=== PATIENT | female | born 1995 | race Caucasian/White ===

== ENCOUNTER 2017-06-10 14:36 | Emergency (ER) | payer OTHER ==
[2017-06-10 15:10] VITALS: BP 131/73; PULSE 73; TEMP 98.4; BMI 22.4
[2017-06-10] MEDS ORDERED: ACETAMINOPHEN 325 MG TABLET (FP) PO ONE (16:29)
--- NOTE | 2017-06-10 16:44 | PDOC ---
History of Present Illness - General Chief Complaint: Headache Stated Complaint: HEADACHE Time Seen by Provider: 06/10/17 16:13 Past History - Past Medical History Home Medications: Ambulatory Orders NK [No Known Home Medication] 06/10/17 COPD: No - Suicide/Smoking/Psychosocial Hx Smoking History: Current every day smoker Number of Cigarettes Smoked Daily: 1 Information on smoking cessation initiated: No Hx Alcohol Use: No Drug/Substance Use Hx: No Substance Use Type: None *Physical Exam - Vital Signs Last Vital Signs Temp Pulse Resp BP Pulse Ox 98.4 F 73 18 131/73 98 06/10/17 15:02 06/10/17 15:02 06/10/17 15:02 06/10/17 15:02 06/10/17 15:02 ED Treatment Course - ADDITIONAL ORDERS Additional order review: Laboratory Results 06/10/17 16:28 Urine HCG, Qual Negative - RADIOLOGY Radiology Studies Ordered: Category Date Time Status HEAD CT WITHOUT CONTRAST [CT] Stat CT Scan 06/10/17 16:29 Ordered *DC/Admit/Observation/Transfer Diagnosis at time of Disposition: Migraine Qualifiers: Migraine type: unspecified Status migrainosus presence: without status migrainosus Intractability: not intractable Qualified Code(s): G43.909 - Migraine, unspecified, not intractable, without status migrainosus - Referrals Referrals: Krystin Deras MD [Primary Care Provider] - - Patient Instructions Printed Discharge Instructions: Migraine -- Adult Additional Instructions: You have a migraine. Your head CT was negative today. Please take ibuprofen 800 mg 3 times a day for the next 2-3 days to help with her pain. A prescription was sent to your pharmacy. Please drink plenty of fluids. Get plenty of rest. Follow-up with her primary care doctor in 2-3 days. Return to the emergency department if her pain gets worse, if you have changes in your vision, changes in the way you walk, or have any changes in her symptoms. - Post Discharge Activity Forms/Work/School Notes: Back to Work
[2017-06-10] MEDS ORDERED: ACETAMINOPHEN 325 MG TABLET (FP) ONE (18:39)
[2017-06-10] MEDS ORDERED: KETOROLAC TROMETHAMINE 60 MG/2 ML VIAL ONE (18:40)
[2017-06-10] MEDS ORDERED: KETOROLAC TROMETHAMINE 60 MG/2 ML VIAL IM ONE (18:45)
== END 2017-06-10 18:48 | disposition home or self-care (01) ==
LOC: JERFT 14:36
PROC: 3E0233Z Introduction of Anti-inflammatory into Muscle, Percutaneous Approach (ICD-10-PCS; principal; 2017-06-10)
DX: G43.909 Migraine, unspecified, not intractable, without status migrainosus (principal)
CPT/HCPCS: 70450-TC; 84703; 96372; 99281-25

== ENCOUNTER 2018-05-22 16:50 | Emergency (ER) | payer SELFPAY ==
[2018-05-22 17:02] VITALS: BP 104/53; PULSE 70; TEMP 97.8; BMI 21.7
[2018-05-22] MEDS ORDERED: METOCLOPRAMIDE HCL 10 MG TABLET (FP) PO ONE ×2 (17:34→18:36)
--- NOTE | 2018-05-22 17:42 | PDOC ---
History of Present Illness - General Chief Complaint: Migraine Headache Stated Complaint: Migraine Headache Time Seen by Provider: 05/22/18 17:25 History Source: Patient Exam Limitations: Clinical Condition - History of Present Illness Initial Comments: 05/22/18 17:35 Patient with no significant past medical history present with complaint of 2 months history of headache and dizziness which has been intermittent for 2 months and has been worsening in the last week. Patient has not followed up with anybody about headaches. Patient denies trauma or injury to head. Patient denies blurry vision or change in vision. Patient reported taking Excedrin 2 times in the last 2 months for her headache. Patient denies any other symptoms Timing/Duration: other (2 months) Past History - Past Medical History Allergies/Adverse Reactions: Allergies Allergy/AdvReac Type Severity Reaction Status Date / Time No Known Allergies Allergy Verified 05/22/18 17:02 Home Medications: Ambulatory Orders Sumatriptan Succinate [Imitrex] 25 mg PO Q6H PRN #20 tablet 05/22/18 COPD: No - Suicide/Smoking/Psychosocial Hx Smoking History: Current every day smoker Have you smoked in the past 12 months: Yes Number of Cigarettes Smoked Daily: 1 Information on smoking cessation initiated: No Hx Alcohol Use: No Drug/Substance Use Hx: No Substance Use Type: None Review of Systems - Review of Systems Able to Perform ROS?: Yes Is the patient limited Kinyarwanda proficient: No Constitutional: No: Chills, Fever, Weakness HEENTM: Yes: See HPI. No: Eye Pain, Blurred Vision, Recent change in vision, Double Vision Respiratory: No: Symptoms reported Cardiac (ROS): No: Symptoms Reported ABD/GI: No: Nausea, Vomiting Neurological: Yes: See HPI, Headache, Dizziness. No: Numbness, Paresthesia, Seizure, Tingling, Weakness All Other Systems: Reviewed and Negative *Physical Exam - Vital Signs Last Vital Signs Temp Pulse Resp BP Pulse Ox 97.8 F 70 16 104/53 L 100 05/22/18 17:00 05/22/18 17:00 05/22/18 17:00 05/22/18 17:00 05/22/18 17:00 - Physical Exam Comments: 05/22/18 17:37 GENERAL: Well developed, well nourished. Awake and alert. No acute distress. HEENT: Normocephalic, atraumatic. PERRLA, EOMI. No conjunctival pallor. Sclera are non- icteric. Moist mucous membranes. Oropharynx is clear. NECK: Supple. Full ROM. No JVD. Carotid pulses 2+ and symmetric, without bruits. No thyromegaly. No lymphadenopathy. CARDIOVASCULAR: Regular rate and rhythm. No murmurs, rubs, or gallops. Distal pulses are 2+ and symmetric. PULMONARY: No evidence of respiratory distress. Lungs clear to auscultation bilaterally. No wheezing, rales or rhonchi. ABDOMINAL: Soft. Non-tender. Non-distended. No rebound or guarding. No organomegaly. Normoactive bowel sounds. MUSCULOSKELETAL Normal range of motion at all joints. SKIN: Warm and dry. Normal capillary refill. No rashes. No jaundice. NEUROLOGICAL: Alert, awake, appropriate. Cranial nerves 2-12 intact. No deficits to light touch in face, upper extremities and lower extremities. No motor deficits in the in face, upper extremities and lower extremities. Normal speech. Gait is normal without ataxia. negative tilt table test PSYCHIATRIC: Cooperative. Good eye contact. Appropriate mood and affect. 05/22/18 17:42 General Appearance: Yes: Nourished, Appropriately Dressed. No: Apparent Distress Moderate Sedation - Procedure Monitoring Vital Signs: Procedure Monitoring Vital Signs Temperature 97.8 F 05/22/18 17:00 Pulse Rate 70 05/22/18 17:00 Respiratory Rate 16 05/22/18 17:00 Blood Pressure 104/53 L 05/22/18 17:00 O2 Sat by Pulse Oximetry (%) 100 05/22/18 17:00 Medical Decision Making - Medical Decision Making 05/22/18 17:39 Patient with no significant past medication present with complaint of 2 months history of headache and dizziness without trauma or injury to head. Patient reported worsening headache and dizziness when last week. Patient reported going to lot of stress with school and having lot of exams in school the last 2 months. Clinical exam unremarkable with normal neuro exam. Reglan 10 mg by mouth ordered for headache. Head CT without contrast ordered to rule out any intracranial pathology. Symptoms likely migraine with aura. Patient be discharged home on Imitrex every negative head CT. 05/22/18 19:23 Head CAT scan shows no acute intracranial pathology. Patient is stable for discharge with Imitrex as needed for headache and neurology follow-up. *DC/Admit/Observation/Transfer Diagnosis at time of Disposition: Tension headache Migraine Qualifiers: Migraine type: with aura Status migrainosus presence: without status migrainosus Intractability: not intractable Qualified Code(s): G43.109 - Migraine with aura, not intractable, without status migrainosus - Discharge Dispostion Disposition: HOME Condition at time of disposition: Stable Decision to Admit order: No - Prescriptions Prescriptions: Sumatriptan Succinate [Imitrex] 25 mg PO Q6H PRN #20 tablet PRN Reason: headache - Referrals Referrals: Krystin Deras MD [Primary Care Provider] - Dustin Herring MD [Staff Physician] - - Patient Instructions Printed Discharge Instructions: Tension Headache Additional Instructions: Your head CAT scan was normal. Take prescribed medication as needed for headache. Follow-up referred neurology if symptoms persist. - Post Discharge Activity
== END 2018-05-22 19:34 | disposition home or self-care (01) ==
LOC: JER 16:50 → JERFT 16:50
DX: G43.109 Migraine with aura, not intractable, without status migrainosus (principal); G44.209 Tension-type headache, unspecified, not intractable; F17.210 Nicotine dependence, cigarettes, uncomplicated
CPT/HCPCS: 70450-TC; 84703; 99281-25

== ENCOUNTER → 2018-09-06 | Day surgery (SDC) | payer OTHER ==
--- NOTE | 2018-09-09 11:25 | OP ---
DATE OF OPERATION: 09/06/2018 PREOPERATIVE DIAGNOSIS: Right breast mass, 9 o'clock, 2 cm from the nipple. POSTOPERATIVE DIAGNOSIS: Right breast mass, 9 o'clock, 2 cm from the nipple. PROCEDURE: Right breast ultrasound guided-core biopsy. ANESTHESIA: Local. ATTENDING SURGEON: Lucy Vasquez MD ESTIMATED BLOOD LOSS: Minimal. COMPLICATIONS: None. DESCRIPTION OF PROCEDURE: Patient was made aware of the risks and benefits of the procedure and consented. She was placed in the supine position. Under sterile conditions with 1% lidocaine for local anesthesia, a small martha was made in the skin. Using a 13-gauge suction biopsy device biopsy via lateral approach, under ultrasound guidance, multiple cores were obtained and submitted to Pathology. No clip was placed into the palpable lesion. Well tolerated by the patient. Steri-Strips and sterile bandage were applied. We will contact her with results. LUCY VASQUEZ M.D. [id number]
--- NOTE | 2018-09-09 15:59 | PATH ---
Surgical Pathology Report Patient Name: LAMA DREW [facility]. Rec. #: [id number] /Age/Gender: 1995 (Age: 23) / F Account: [id number] Location: Taken: 09/06/2018 Received: 09/06/2018 Reported: 09/09/2018 Physicians: Lucy Vasquez M.D. Specimen(s) Received RIGHT BREAST 9:00 2CM FN CORE BIOPSY Clinical History Palpable mass Ultrasound findings: Probably benign Final Diagnosis BREAST, RIGHT, 9:00, 2 CM FN, CORE BIOPSY: BENIGN BREAST TISSUE SHOWING FIBROADENOMA. Electronically Signed Mony Wang M.D. Gross Description Received in formalin labeled "right breast biopsy 9:00, 2cmfn," is a 1.8 x 1.7 x 0.3 cm aggregate of multiple felton-yellow, irregular to cylindrical portions of fibroadipose tissue. The formalin is filtered and the specimen is entirely submitted in one cassette. Time to formalin fixation: < 1 minute Total formalin fixation time: Approximately 51 hours. /09/07/2018 [facility]09/07/2018
== END | disposition home or self-care (01) ==
LOC: FRADUS-SUR 14:09
PROVIDERS: ATTEND Surgery Surgical Oncology
PROC: 0HBT3ZX Excision of Right Breast, Percutaneous Approach, Diagnostic (ICD-10-PCS; principal; 2018-09-06)
DX: D24.1 Benign neoplasm of right breast (principal); N63.10 Unspecified lump in the right breast, unspecified quadrant
CPT/HCPCS: 19083; 87899; 88305-TC; A4648

== ENCOUNTER 2022-08-14 09:49 | Observation (INO) | payer OTHER ==
[2022-08-14 09:57] VITALS: BMI 23.6
[2022-08-14 10:23] LABS: BASO % 0.6 % (0-2.0); HEMATOCRIT 37.7 % (32.4-45.2); HEMOGLOBIN 12.7 GM/dL (10.7-15.3); LYMPH % 34.2 % (8-40); MCH 29.5 pg (25.7-33.7); MCHC 33.7 g/dl (32.0-36.0); MEAN CELL VOLUME 87.4 fl (80-96); MONO % 8.7 % (3.8-10.2); NEUT % 55.5 % (42.8-82.8); PLATELET COUNT 246 10^3/uL (134-434); RBC 4.31 M/mm3 (3.60-5.2); RDW 13.5 % (11.6-15.6); WHITE BLOOD COUNT 6.7 K/mm3 (4.0-10.0)
[2022-08-14 10:29] LABS: INR 1.07 (0.83-1.09); PROTHROMBIN TIME (PATIENT) 12.4 SEC (9.7-13.0)
[2022-08-14 10:32] LABS: ACTIVATED PTT 34.2 SECONDS (25.2-36.5)
[2022-08-14] MEDS: SODIUM CHLORIDE 1,000 ML IV SCH (10:41)
[2022-08-14 10:44] LABS: CALCIUM 8.7 mg/dL (8.5-10.1)
[2022-08-14 10:46] LABS: BLOOD UREA NITROGEN 10.6 mg/dL (7-18)
[2022-08-14 10:48] LABS: CREATININE 0.7 mg/dL (0.55-1.3)
[2022-08-14 10:50] LABS: TOT PROT 7.5 g/dl (6.4-8.2)
[2022-08-14 10:51] LABS: BILIRUBIN,TOTAL 1.8 mg/dL (0.2-1)
[2022-08-14 13:44] LABS: EPI CELLS 26 /uL (0-25.1); HYALINE CASTS 2 /uL (0-3.1); URINE APPEARANCE CLOUDY; URINE BACTERIA 2111 /uL (0-1359); URINE BILIRUBIN NEGATIVE (NEGATIVE); URINE COLOR YELLOW; URINE GLUCOSE (UA) NEGATIVE (NEGATIVE); URINE KETONE NEGATIVE (NEGATIVE); URINE LEUK ESTERASE 3+ (NEGATIVE); URINE NITRITE NEGATIVE (NEGATIVE); URINE PROTEIN NEGATIVE (NEGATIVE); URINE RBC 32 /uL (0-23.9); URINE UROBILINOGEN 0.2 mg/dL (0.2-1.0); URINE WBC 262 /uL (0-25.8)
[2022-08-14] MEDS ORDERED: ACETAMINOPHEN 325 MG TABLET (FP) PO PRN (16:52)
[2022-08-14] MEDS ORDERED: ATORVASTATIN CA 40 MG TABLET (FP) PO SCH (22:00)
[2022-08-14] MEDS: TOPIRAMATE 25 MG TABLET PO SCH (22:59)
[2022-08-14] MEDS: ASPIRIN 81 MG CHEWABLE TABLETS PO SCH (22:59)
[2022-08-15 09:34] VITALS: BP 111/65; PULSE 68; RESP 16; TEMP 98.8
[2022-08-15] MEDS: SODIUM CHLORIDE 1,000 ML IV SCH (10:27)
[2022-08-15] MEDS: ASPIRIN 81 MG CHEWABLE TABLETS PO SCH ×2 (10:33→10:34)
[2022-08-15] MEDS: TOPIRAMATE 25 MG TABLET PO SCH (10:34)
== END 2022-08-15 11:12 | disposition home or self-care (01) ==
LOC: JER 09:49 → UNDOADMOB 12:54 → JERBED 12:54 → INTOOBSV 12:54 → JERBED 15:23 → J4W 15:26 → JERBED 15:26
PROVIDERS: ADMIT Family Medicine; ATTEND Family Medicine
DX: G43.909 Migraine, unspecified, not intractable, without status migrainosus (principal); G44.209 Tension-type headache, unspecified, not intractable; R20.0 Anesthesia of skin; Z86.73 Personal history of transient ischemic attack (TIA), and cerebral infarction without residual deficits
CPT/HCPCS: 0241U-QW; 36415; 70450-TC; 70551-TC; 80053; 80061; 81003; 82550; 83036; 84484; 84703; 85025; 85610; 85730; 93005; 93010; 99285-25; G0378

== ENCOUNTER 2023-06-04 11:10 | Emergency (ER) | payer OTHER ==
[2023-06-04 11:21] VITALS: BP 105/59; PULSE 77; RESP 18; TEMP 98; BMI 23.3
[2023-06-04] MEDS ORDERED: ACETAMINOPHEN 500 MG TABLET (FP) PO ONE (12:10)
[2023-06-04] MEDS ORDERED: PHENAZOPYRIDINE HCL 100 MG TABLET (FP) PO ONE (12:10)
[2023-06-04] MEDS ORDERED: ACETAMINOPHEN 500 MG TABLET (FP) ONE (12:23)
[2023-06-04] MEDS ORDERED: PHENAZOPYRIDINE HCL 100 MG TABLET (FP) ONE (12:23)
[2023-06-04 12:59] LABS: EPI CELLS 33 /uL (0-25.1); HCG,QUALITATIVE URINE Negative; HYALINE CASTS 1 /uL (0-3.1); PH,URINE 7.5 (5.0-8.0); URINE APPEARANCE CLOUDY; URINE BACTERIA 3757 /uL (0-1359); URINE BILIRUBIN NEGATIVE (NEGATIVE); URINE COLOR YELLOW; URINE GLUCOSE (UA) NEGATIVE (NEGATIVE); URINE KETONE NEGATIVE (NEGATIVE); URINE LEUK ESTERASE 2+ (NEGATIVE); URINE NITRITE NEGATIVE (NEGATIVE); URINE PROTEIN 1+ (NEGATIVE); URINE RBC 3382 /uL (0-23.9); URINE WBC 2075 /uL (0-25.8)
[2023-06-04 13:00] LABS: BASO % 0.3 % (0-2.0); EOS % 0.6 % (0-4.5); HEMATOCRIT 38.9 % (32.4-45.2); HEMOGLOBIN 12.5 GM/dL (10.7-15.3); LYMPH % 21.1 % (8-40); MCH 29.3 pg (25.7-33.7); MCHC 32.3 g/dl (32.0-36.0); MEAN CELL VOLUME 90.6 fl (80-96); MEAN PLT VOLUME 8.5 fl (7.5-11.1); MONO % 5.2 % (3.8-10.2); NEUT % 72.8 % (42.8-82.8); PLATELET COUNT 252 10^3/uL (134-434); RBC 4.29 M/mm3 (3.60-5.2); RDW 13.4 % (11.6-15.6); WHITE BLOOD COUNT 11.2 K/mm3 (4.0-10.0)
[2023-06-04 13:01] LABS: INR 1.09 (0.83-1.09); PROTHROMBIN TIME (PATIENT) 12.6 SEC (9.7-13.0)
[2023-06-04 13:03] LABS: ACTIVATED PTT 31.8 SECONDS (25.2-36.5)
[2023-06-04 13:34] LABS: POTASSIUM 3.9 mmol/L (3.5-5.1)
[2023-06-04 13:37] LABS: ALBUMIN 3.8 g/dl (3.4-5.0); BLOOD UREA NITROGEN 11.6 mg/dL (7-18)
[2023-06-04 13:40] LABS: CREATININE 0.7 mg/dL (0.55-1.3)
[2023-06-04 13:41] LABS: BILIRUBIN,TOTAL 0.8 mg/dL (0.2-1)
[2023-06-04 13:42] LABS: TOT PROT 7.5 g/dl (6.4-8.2)
[2023-06-04] MEDS ORDERED: CEFTRIAXONE 1,000 MG in DEXTROSE 5%-WATER - 50 ML IVPB ONE (15:32)
[2023-06-04] MEDS ORDERED: CEFTRIAXONE 1 GM/50 ML BAG ONE ×2 (16:42→16:46)
== END 2023-06-04 16:55 | disposition home or self-care (01) ==
LOC: JER 11:10
DX: R35.0 Frequency of micturition (principal); R30.0 Dysuria; R10.30 Lower abdominal pain, unspecified; R50.9 Fever, unspecified; R42 Dizziness and giddiness; R31.9 Hematuria, unspecified
CPT/HCPCS: 36415; 74176-TC; 76775-TC; 80053; 81003; 84703; 85025; 85610; 85730; 86850; 86900; 86901; 87086; 99285-25